=== PATIENT | female | born 1960 | race Caucasian/White ===

== ENCOUNTER 2018-10-18 02:09 | Emergency (ER) | payer BC ==
[~2018-10-18] VITALS: Ht 167.6 cm; Wt 99.8 kg
--- OUTSIDE RECORDS SUMMARY | 2018-10-18 02:12 | XMS REPORT | Clinical Summary ---
Author Author Matthew [facility] Organization [place] [employer] Address Unknown Phone Unavailable Care Team Providers Care Coconut Boiler Name Role Phone Jasiel Zamorano MD PCP Allergies Comments Active Allergy Reactions Severity Noted Date Leg swelling Amlodipine Swelling 07/08/2018 sob Nebivolol 10/17/2018 cough Lisinopril 10/17/2018 Leg cramps Triamterene-Hydrochloroth 10/17/2018 iazid Medications End Date Status Medication Sig Dispensed Refills Start Date 10/31/2018 Active fluticasone (FLONASE) 50 2 sprays (100 16 g 2 mcg/actuation nasal spray mcg total) by 8 Each Nare route daily. Active triamcinolone (KENALOG) Apply 30 g 1 0.5 % ointment topically 2 8 (two) times a day. Active hydrALAZINE (APRESOLINE) Take 1 tablet 270 tablet 1 50 MG tablet (50 mg total) 9 by mouth 3 (three) times a day. 10/17/2019 Active clonIDINE (CATAPRES-TTS) Place 1 patch 12 patch 1 0.2 mg/24 hr (0.2 mg 9 total) on the skin once a week. Active olmesartan (BENICAR) 40 TAKE 1 90 tablet 1 MG tablet TABLET(40 MG) 9 BY MOUTH DAILY 01/15/2019 Active ezetimibe (ZETIA) 10 mg Take 1 tablet 90 tablet 0 tablet (10 mg total) 9 by mouth daily for 90 days. 10/31/2017 Discontinued hydrALAZINE (APRESOLINE) TK 1 T PO BID 1 25 MG tablet 8 10/31/2017 Discontinued triamcinolone (KENALOG) Apply 0 0.5 % ointment topically 2 (two) times a day. 10/31/2017 Discontinued olmesartan (BENICAR) 40 Take 1 tablet 30 tablet 0 MG tablet (40 mg total) 8 by mouth daily for 30 days. 10/31/2017 Discontinued hydroCHLOROthiazide Take 1 tablet 30 tablet 0 (HYDRODIURIL) 25 MG (25 mg total) 8 tablet by mouth daily for 30 days. 02/06/2018 Discontinued hydroCHLOROthiazide Take 1 tablet 90 tablet 0 (HYDRODIURIL) 25 MG (25 mg total) 8 tablet by mouth daily for 30 days. 11/19/2017 Discontinued hydrALAZINE (APRESOLINE) TK 1 T PO BID 180 tablet 0 25 MG tablet 8 02/06/2018 Discontinued olmesartan (BENICAR) 40 Take 1 tablet 90 tablet 0 MG tablet (40 mg total) 8 by mouth daily for 30 days. 04/18/2018 Discontinued ergocalciferol (VITAMIN Take 1 12 capsule 0 D2) 50,000 unit capsule capsule 8 (50,000 Units total) by mouth once a week. 03/12/2018 Discontinued hydrALAZINE (APRESOLINE) TK 1 T PO TID 270 tablet 0 25 MG tablet 8 04/18/2018 Discontinued hydroCHLOROthiazide TAKE 1 90 tablet 0 (HYDRODIURIL) 25 MG TABLET(25 MG) 8 tablet BY MOUTH DAILY 04/18/2018 Discontinued olmesartan (BENICAR) 40 TAKE 1 90 tablet 0 MG tablet TABLET(40 MG) 8 BY MOUTH DAILY 04/18/2018 Discontinued hydrALAZINE (APRESOLINE) TAKE 1 TABLET 90 tablet 0 25 MG tablet BY MOUTH 9 THREE TIMES DAILY 05/09/2018 Discontinued olmesartan (BENICAR) 40 TAKE 1 90 tablet 1 MG tablet TABLET(40 MG) 9 BY MOUTH DAILY 06/05/2018 Discontinued hydroCHLOROthiazide TAKE 1 90 tablet 1 (HYDRODIURIL) 25 MG TABLET(25 MG) 9 tablet BY MOUTH DAILY 06/05/2018 Discontinued hydrALAZINE (APRESOLINE) TAKE 1 TABLET 90 tablet 1 25 MG tablet BY MOUTH 9 THREE TIMES DAILY 10/17/2018 Discontinued rosuvastatin (CRESTOR) 5 Take 1 tablet 90 tablet 1 MG tablet (5 mg total) 9 by mouth daily. 04/28/2018 Discontinued olmesartan-hydrochlorothi Take 1 tablet 90 tablet 1 azide (BENICAR HCT) 40-25 by mouth 9 mg per tablet daily for 90 days. 05/09/2018 Discontinued olmesartan-hydrochlorothi Take 1 tablet 90 tablet 1 azide (BENICAR HCT) 40-25 by mouth 9 mg per tablet daily for 90 days. 06/05/2018 Discontinued nebivolol (BYSTOLIC) 20 Take 1 tablet 90 tablet 0 mg tablet (20 mg total) 9 by mouth daily. 06/05/2018 Discontinued olmesartan (BENICAR) 40 0 MG tablet 9 08/30/2018 Discontinued olmesartan (BENICAR) 40 Take 1 tablet 90 tablet 0 MG tablet (40 mg total) 9 by mouth daily. 07/22/2018 Discontinued clonIDINE (CATAPRES-TTS) Place 1 patch 4 patch 0 0.2 mg/24 hr (0.2 mg 9 total) on the skin once a week. 10/17/2018 Discontinued triamterene-hydrochloroth Take 1 tablet 30 tablet 0 iazid (MAXZIDE-25MG) by mouth 9 37.5-25 mg per tablet daily. 08/30/2018 Discontinued hydrALAZINE (APRESOLINE) Take 1 tablet 90 tablet 0 25 MG tablet (25 mg total) 9 by mouth 3 (three) times a day. 10/17/2018 Discontinued clonIDINE (CATAPRES-TTS) Place 1 patch 12 patch 0 0.2 mg/24 hr (0.2 mg 9 total) on the skin once a week. 10/17/2018 Discontinued olmesartan (BENICAR) 40 TAKE 1 90 tablet 0 MG tablet TABLET(40 MG) 9 BY MOUTH DAILY 10/17/2018 Discontinued hydrALAZINE (APRESOLINE) TAKE 1 90 tablet 0 25 MG tablet TABLET(25 MG) 9 BY MOUTH THREE TIMES DAILY Active Problems Problem Noted Date Obesity (BMI 35.0-39.9 without comorbidity) 10/31/2017 Vitamin D deficiency 10/31/2017 Hyperlipidemia LDL goal <100 10/10/2017 Essential hypertension 10/10/2017 Leg cramp 10/10/2017 Cigarette nicotine dependence without complication 10/10/2017 Family history of colon cancer 10/10/2017 Glucose intolerance (impaired glucose tolerance) 10/10/2017 Encounters Care Team Description Date Type Specialty Jasiel Zamorano MD Essential hypertension (Primary Dx); Hyperlipidemia LDL goal <100; Glucose intolerance (impaired glucose tolerance); Obesity (BMI 35.0-39.9 without comorbidity) 10/17/2018 Office Visit Internal Medicine Jasiel Zamorano MD 10/13/2018 Refill Internal Medicine Jasiel Zamorano MD 08/30/2018 Refill Internal Medicine Marcie Schofield MA 07/22/2018 Refill Internal Medicine Jasiel Zamorano MD Essential hypertension (Primary Dx); Obesity (BMI 35.0-39.9 without comorbidity); Hyperlipidemia LDL goal <100; Cigarette nicotine dependence without complication; Glucose intolerance (impaired glucose tolerance) 07/08/2018 Office Visit Internal Medicine Jasiel Zamorano MD Essential hypertension (Primary Dx); Obesity (BMI 35.0-39.9 without comorbidity) 06/05/2018 Office Visit Internal Medicine Jasiel Zamorano MD Essential hypertension (Primary Dx); Leg cramp 05/09/2018 Office Visit Internal Medicine Mihaela Burton MA 04/28/2018 Orders Only Internal Medicine Mihaela Burton MA 04/23/2018 Orders Only Internal Medicine Jasiel Zamorano MD Essential hypertension (Primary Dx); Hyperlipidemia LDL goal <100; Glucose intolerance (impaired glucose tolerance); Obesity (BMI 35.0-39.9 without comorbidity); Cigarette nicotine dependence without complication; Vitamin D deficiency; Family history of colon cancer 04/18/2018 Office Visit Internal Jasiel Morin MD 04/14/2018 Refill Internal Medicine Jasiel Zamorano MD 03/12/2018 Refill Internal Medicine Jasiel Zamorano MD 02/06/2018 Refill Internal Medicine Mihaela Burton MA 11/19/2017 Orders Only Internal Medicine Jasiel Zamorano MD Essential hypertension (Primary Dx); Glucose intolerance (impaired glucose tolerance); Hyperlipidemia LDL goal <100; Vitamin D deficiency; Obesity (BMI 35.0-39.9 without comorbidity) 10/31/2017 Office Visit Internal Medicine after 10/17/2017 Family History Medical History Relation Name Comments Colon cancer Father Stroke Father Heart disease Mother Colon cancer Sister Thyroid disease Sister Thyroid disease Sister Thyroid disease Sister Relation Name Status Comments Father Mother Sister Alive Sister Alive Sister Alive Sister Alive Social History Date Tobacco Use Types Packs/Day Years Used Current Every Day Smoker Cigarettes 0.5 45 Smokeless Tobacco: Never Used Tobacco Cessation: Ready to Quit: Yes; Counseling Given: Yes Alcohol Use Drinks/Week oz/Week Comments Yes socially Sex Assigned at Date Recorded Not on file Industry Job Start Date Occupation Not on file Not on file Not on file Travel End Travel History Travel Start No recent travel history available. Last Filed Vital Signs Time Taken Vital Sign Reading 10/17/2018 11:54 AM CDT Blood Pressure 155/80 10/17/2018 11:54 AM CDT Pulse 73 10/17/2018 11:54 AM CDT Temperature 36.7 C (98.1 F) - Respiratory Rate - 10/17/2018 11:54 AM CDT Oxygen Saturation 98% - Inhaled Oxygen - Concentration 10/17/2018 11:54 AM CDT Weight 101 kg (222 lb) 10/17/2018 11:54 AM CDT Height 167.6 cm (5' 6") 10/17/2018 11:54 AM CDT Body Mass Index 35.83 Plan of Treatment Health Maintenance Due Date Last Done Comments BREAST CANCER SCREENING 10/24/2009 COLONOSCOPY SCREENING 10/24/2009 SHINGLES VACCINES (#1) 10/24/2009 INFLUENZA VACCINE 10/02/2018 02/13/2018 Procedures Comments Procedure Name Priority Date/Time Associated Diagnosis HEMOGLOBIN A1C Routine 07/07/2018 Glucose intolerance 9:28 AM CDT (impaired glucose tolerance) VITAMIN D 25 HYDROXY Routine 07/07/2018 Vitamin D deficiency LEVEL 9:28 AM CDT LIPID PANEL WITH REFLEX Routine 07/07/2018 Hyperlipidemia LDL goal TO DIRECT LDL 9:28 AM CDT <100 COMPREHENSIVE METABOLIC Routine 07/07/2018 Essential hypertension PANEL 9:28 AM CDT CBC WITH PLATELET AND Routine 07/07/2018 Essential hypertension DIFFERENTIAL 9:28 AM CDT MAGNESIUM LEVEL Routine 05/09/2018 Leg cramp 2:25 PM ROTARY PLANER SET UP OPERATOR LIPID PANEL WITH REFLEX Routine 04/17/2018 Hyperlipidemia LDL goal TO DIRECT LDL 9:09 AM ROTARY PLANER SET UP OPERATOR <100 BASIC METABOLIC PANEL Routine 04/17/2018 Essential hypertension 9:09 AM ROTARY PLANER SET UP OPERATOR after 10/17/2017 Results * LIPID PANEL WITH REFLEX TO DIRECT LDL (07/07/2018 9:28 AM CDT) Only the most recent of 2 results within the time period is included. [facility] Cholesterol, 155 <200 mg/dL [facility] [place] HDL cholesterol 40 (L) >50 mg/dL [facility] [place] Triglycerides 249 (H) <150 mg/dL [facility] [place] LDL cholesterol 82 mg/dL (calc) [facility] calculated Comment: DIAGNOSTICS Reference range: <100 [place] Desirable range <100 mg/dL for primary prevention; <70 mg/dL for patients with CHD or diabetic patients with > or=2 CHD risk factors. LDL-C is now calculated using the Pal-Jose calculation, which is a validated novel method providing better accuracy than the Friedewald equation in the estimation of LDL-C. Pal SS et al. SHANT. 2013;310(19): 1841-2805 (http://education.[employer].com/faq/QWX798) Cholesterol/HDL 3.9 <5.0 (calc) [facility] ratio [facility] [place] Non-HDL 115 <130 mg/dL (calc) [facility] cholesterol Comment: DIAGNOSTICS For patients with diabetes [place] plus 1 major ASCVD risk factor, treating to a non-HDL-C goal of <100 mg/dL (LDL-C of <70 mg/dL) is considered a therapeutic option. Specimen Narrative Performed At FASTING:YES [facility] FASTING: YES Resulting Agency Comment Performing Organization Information: Site ID: [id number] Name: [facility] Address: [address] [place] [address] Director: Blossom Manzanares Performing Organization Address City/State/Zipcode Phone Number BEN [facility] [address] [address] * Vitamin D 25 hydroxy level (07/07/2018 9:28 AM CDT) Pathologist [facility] Vitamin D, 47 30 - 100 ng/mL [facility] 25-hydroxy Comment: DIAGNOSTICS Vitamin D [place] Status 25-OH Vitamin D: Deficiency: <20 ng/mL Insufficiency: 20 - 29 ng/mL Optimal: > or=30 ng/mL For 25-OH Vitamin D testing on patients on D2-supplementation and patients for whom quantitation of D2 and D3 fractions is required, the QuestAssureD(TM) 25-OH VIT D, (D2,D3), LC/MS/MS is recommended: order code 30441 (patients >2yrs). For more information on this test, go to: http://education.[employer]/faq/GLS137 (This link is being provided for informational/educational purposes only.) Specimen Narrative Performed At FASTING:YES [facility] FASTING: YES Resulting Agency Comment Performing Organization Information: Site ID: [id number] Name: [facility] Address: [address] [place] [id number] Director: Blossom Manzanares Performing Organization Address City/State/Zipcode Phone Number [employer] [place] [phone] * CBC with platelet and differential (07/07/2018 9:28 AM CDT) [facility] WBC 7.1 3.8 - 10.8 [facility] [employer]ousand[employer]L [facility] RBC 4.80 3.80 - 5.10 [facility] Million/uL [facility] HGB 14.3 11.7 - 15.5 g/dL [facility] [place] HCT 43.9 35.0 - 45.0 % [facility] [place] MCV 91.5 80.0 - 100.0 fL [facility] [place] MCH 29.8 27.0 - 33.0 pg [facility] [place] MCHC 32.6 32.0 - 36.0 g/dL [facility] [place] RDW 13.8 11.0 - 15.0 % [facility] [place] Platelet count 231 140 - 400 [facility] Thousand/uL [employer] [place] MPV 10.3 7.5 - 12.5 fL [facility] [place] Neutrophils, 4,047 1,500 - 7,800 [facility] absolute cells/uL [facility] [place] Lymphocytes, 2,229 850 - 3,900 cells/uL [facility] [place] Monocytes, 447 200 - 950 cells/uL [facility] absolute [facility] [place] Eosinophils, 327 15 - 500 cells/uL [facility] absolute [facility] [place] Basophils, 50 0 - 200 cells/uL [facility] absolute [facility] [place] Neutrophils 57 % [facility] [place] Lymphocytes 31.4 % [facility] [place] Monocytes 6.3 % [facility] [place] Eosinophils 4.6 % [facility] [place] Basophils + RC 0.7 % [facility] [place] Specimen Narrative Performed At FASTING:YES [facility] FASTING: YES Resulting Agency Comment Performing Organization Information: Site ID: [id number] Name: [facility] Address: [address] [place] [id number] Director: Blossom Manzanares Performing Organization Address [facility] Phone Number [facility] [address] * Hemoglobin A1c (07/07/2018 9:28 AM CDT) Hemoglobin A1C 5.8 (H) <5.7 % of total Hgb [facility] Comment: DIAGNOSTICS For someone without known [place] diabetes, a hemoglobin A1c value between 5.7% and 6.4% is consistent with prediabetes and should be confirmed with a follow-up test. For someone with known diabetes, a value <7% indicates that their diabetes is well controlled. A1c targets should be individualized based on duration of diabetes, age, comorbid conditions, and other considerations. This assay result is consistent with an increased risk of diabetes. Currently, no consensus exists regarding use of hemoglobin A1c for diagnosis of diabetes for children. Specimen Narrative Performed At FASTING:YES [facility] FASTING: YES Resulting Agency Comment Performing Organization Information: Site ID: [id number] Name: [facility] Address: [address] [place] [phone] Director: Blossom Manzanares Performing Organization Address [facility] Phone Number [facility] [place] [address] [place] [phone] * Comprehensive metabolic panel (07/07/2018 9:28 AM CDT) Glucose 99 65 - 99 mg/dL [facility] Comment: DIAGNOSTICS Fasting [place] reference interval BUN, whole 12 7 - 25 mg/dL [facility] blood [facility] [place] Creatinine 0.82 0.50 - 1.05 mg/dL [facility] Comment: DIAGNOSTICS For patients >49 years of age, [place] the reference limit for Creatinine is approximately 13% higher for people identified as -Russian. EGFR Non-Afr. 79 > OR=60 [facility] Russian mL/min/1.73m2 [facility] [place] EGFR 91 > OR=60 [facility] Russian mL/min/1.73m2 [facility] [place] BUN/creatinine NOT APPLICABLE 6 - 22 (calc) [facility] [place] Sodium 142 135 - 146 mmol/L [facility] [place] Potassium 4.3 3.5 - 5.3 mmol/L [facility] [place] Chloride 106 98 - 110 mmol/L [facility] [place] CO2 30 20 - 32 mmol/L [facility] [place] Calcium 9.4 8.6 - 10.4 mg/dL [facility] [place] Protein 7.1 6.1 - 8.1 g/dL [facility] [place] Albumin, S 4.3 3.6 - 5.1 g/dL [facility] [place] Globulin, total 2.8 1.9 - 3.7 g/dL [facility] (calc) [facility] [place] Albumin/globuli 1.5 1.0 - 2.5 (calc) [facility] n ratio [facility] [place] Total bilirubin 0.5 0.2 - 1.2 mg/dL [facility] [place] Alkaline 53 33 - 130 U/L [facility] phosphatase [facility] [place] AST 12 10 - 35 U/L [facility] [place] ALT 11 6 - 29 U/L [facility] [place] Specimen Narrative Performed At FASTING:YES [facility] FASTING: YES Resulting Agency Comment Performing Organization Information: Site ID: [id number] Name: [facility] Address: [address] [place] [phone] Director: Blossom Manzanares Performing Organization Address [facility] Phone Number [employer] [address] [address] * Magnesium level (05/09/2018 2:25 PM ROTARY PLANER SET UP OPERATOR) Magnesium 2.1 1.5 - 2.5 mg/dL [facility] [place] Specimen Blood Narrative Performed At FASTING:NO [facility] FASTING: NO Resulting Agency Comment Performing Organization Information: Site ID: [id number] Name: [facility] Address: [address] [place] [phone] Director: Blossom Manzanares Performing Organization Address City/[facility]/Zipcode Phone Number [employer] [address] [address] * Basic metabolic panel (04/17/2018 9:09 AM ROTARY PLANER SET UP OPERATOR) Glucose 100 (H) 65 - 99 mg/dL [facility] Comment: DIAGNOSTICS Fasting [place] reference interval For someone without known diabetes, a glucose value between 100 and 125 mg/dL is consistent with prediabetes and should be confirmed with a follow-up test. BUN, whole 18 7 - 25 mg/dL [facility] blood [facility] [place] Creatinine 0.82 0.50 - 1.05 mg/dL [facility] Comment: DIAGNOSTICS For patients >49 years of age, [place] the reference limit for Creatinine is approximately 13% higher for people identified as -Russian. EGFR Non-Afr. 79 > OR=60 [facility] Russian mL/min/1.73m2 [facility] [place] EGFR 91 > OR=60 [facility] Russian mL/min/1.73m2 [facility] [place] BUN/creatinine NOT APPLICABLE 6 - 22 (calc) [facility] [place] Sodium 141 135 - 146 mmol/L [facility] [place] Potassium 4.1 3.5 - 5.3 mmol/L [facility] [place] Chloride 104 98 - 110 mmol/L [facility] [place] CO2 28 20 - 32 mmol/L [facility] [place] Calcium 9.3 8.6 - 10.4 mg/dL [facility] [place] Specimen Narrative Performed At FASTING:YES [facility] FASTING: YES Resulting Agency Comment Performing Organization Information: Site ID: [id number] Name: [facility] Address: [address] [place] [phone] Director: Blossom Manzanares Performing Organization Address City/State/Zipcode Phone Number [employer] [place] [address] [place] [address] after 10/17/2017 Insurance Type Payer Benefit Subscriber ID Effective Phone Address Plan / Dates Group PPO BCBS BCBS xxxxxxxxxxxx [id number] CHOICE resent PPO/ERNESTINA L EMPL PPO Advance Directives Patient has advance care planning documents on file. For more information, kailyn hardy contact: Matthew Marshall [address] [place] [address]
--- OUTSIDE RECORDS SUMMARY | 2018-10-18 02:12 | XMS REPORT | Continuity of Care Document ---
Author Author [employer] Organization [employer] Address Unknown Phone Unavailable Care Team Providers Care Catalyst Supervisor Name Role Phone [employer] Information Ivaldi Unavailable Unavailable Problems Problem Status Onset Date Classification Date Reported Comments Source M25.562 Active 09/06/2016 [facility] Knee pain (finding) Active Problem 02/04/2017 [facility] Eczema (disorder) Active Problem 02/04/2017 [facility] Hypertensive disorder, systemic arterial (disorder) Active Problem 02/04/2017 [facility] Low back pain (disorder) Active Problem 02/04/2017 [facility] Obesity (disorder) Active Problem 02/04/2017 [facility] Uterine leiomyoma (disorder) Active Problem 02/04/2017 [facility] Medications No Data Provided for This Section Allergies, Adverse Reactions, Alerts No Known Medication Allergies Immunizations No Data Provided for This Section Results No Data Provided for This Section Pathology Reports No Data Provided for This Section Diagnostic Reports Report Value Date Source Knee 3 views DX Patient Name: KATJA EVANS : 1960; Age: 55 years y/o Female MR: [id number] * LEFT KNEE, 3 views History: left knee pain Technique : Frontal, lateral and oblique radiographs of the left knee were obtained. FINDINGS: There is no evidence of a significant joint effusion. There is no evidence of fracture, dislocation, or acute change. There are no degenerative changes or other significant osseous abnormalities. IMPRESSION: 1. Negative left knee. SL: [id number] 09/06/2016 [facility] Consultation Notes No Data Provided for This Section Discharge Summaries No Data Provided for This Section History and Physicals No Data Provided for This Section Vital Signs No Data Provided for This Section Encounters Location Location Details Encounter Type Encounter Number Reason For Visit Attending Provider ADM Date DC Date Status Source Outpatient [id number] DEMI PATEL 01/06/2016 Active [facility] Outpatient [id number] DEON PRASAD 08/07/2016 Active [facility] Outpatient [id number] DEMI REYH 09/06/[address] [facility] Outpatient [id number] Demi Amanda 09/06/2016 09/07/2016 [facility] Outpatient [id number] DEMI REYH 01/01/2017 [facility] Phone Message [id number] 01/31/2017 02/02/2017 [facility] Procedures Procedure Code Date Perfomer Comments Source Cervical cytology screening<sup>1</sup> [id number] 03/20/2011 [facility] Tubal ligation [id number] [facility] Assessment and Plan No Data Provided for This Section Plan of Care No Data Provided for This Section Social History Social History Date Source Social History TypeResponse Substance Abuse Use: None. Exercise Exercise duration: 15. Exercise frequency: 1-2 times/week. Employment/School Status: Unemployed. Alcohol Never Smoking Status Current every day smoker; Type: Cigarettes; Tobacco use per day: 10; Ready to change: No; Concerns about tobacco use in household: No; Exposure to Tobacco Smoke self; Cigarette Smoking Last 365 Days Yes; Reg Smoking Cessation Counseling Yes 08/07/2016 [facility] Social History TypeResponse Substance Abuse Use: None. Exercise Exercise duration: 15. Exercise frequency: 1-2 times/week. Employment/School Status: Unemployed. Alcohol Never Smoking Status Current every day smoker; Type: Cigarettes; Ready to change: No; Concerns about tobacco use in household: No; Exposure to Tobacco Smoke self; Cigarette Smoking Last 365 Days Yes; Reg Smoking Cessation Counseling Yes; Tobacco use per day: 10; 08/07/2016 [facility] Family History No Data Provided for This Section Advance Directives No Data Provided for This Section Functional Status No Data Provided for This Section
--- OUTSIDE RECORDS SUMMARY | 2018-10-18 02:12 | XMS REPORT | Summary of Care ---
Author Author [facility] Organization [facility] Address Unknown Phone Unavailable Encounter HQ Elinor(GLENN) [id number] Date(s): 09/06/16 - 09/06/16 [facility] [address] [place] [address]- Discharge Disposition: Home or Self Care Attending Physician: Margaret Yeboah DO Vital Signs No data available for this section Problem List Condition Effective Dates Status Health Status Informant Left knee Active pain(Confirmed) Eczema(Confirmed) Active Hypertension(Confirm Active ed) Low back Active pain(Confirmed) Obesity(Confirmed) Active Uterine Active fibroid(Confirmed) Allergies, Adverse Reactions, Alerts Substance Reaction Severity Status NKDA Active Medications No data available for this section Results No data available for this section Immunizations No data available for this section Procedures Procedure Date Related Diagnosis Body Site Cervical cytology screening1 03/20/11 Tubal ligation 1ASCUS Social History Social History Type Response Substance Abuse Use: None. Exercise Exercise duration: 15. Exercise frequency: 1-2 times/week. Employment/School Status: Unemployed. Alcohol Never Smoking Status Current every day smoker; Type: Cigarettes; Tobacco use per day: 10; Ready to change: No; Concerns about tobacco use in household: No; Exposure to Tobacco Smoke self; Cigarette Smoking Last 365 Days Yes; Reg Smoking Cessation Counseling Yes Assessment and Plan No data available for this section
--- OUTSIDE RECORDS SUMMARY | 2018-10-18 02:12 | XMS REPORT | Summary of Care ---
Author Author [facility] Organization [facility] Address Unknown Phone Unavailable Encounter HQ Encntr_alias(FIN) [id number] Date(s): 01/31/17 - 02/01/17 [facility] [address], [address] [place] [address]- [phone] Vital Signs No data available for this [...] Counseling Yes; Tobacco use per day: 10; Assessment and Plan No data available for this section
[2018-10-18] MEDS ORDERED: CLONIDINE HCL 0.3 MG TAB PO ONE (02:45)
[2018-10-18 03:06] LABS: BASOPHILS # (AUTO) 0.1 (0.0-0.1); BASOPHILS % 0.5 % (0.0-1.0); EOSINOPHILS # (AUTO) 0.3 (0.0-0.4); EOSINOPHILS % 3.7 % (0.0-6.0); HEMOGLOBIN 14.6 g/dL (12.0-16.0); LYMPHOCYTES # (AUTO) 3.6 (1.0-3.2); LYMPHOCYTES % 38.9 % (18.0-39.1); MEAN CORPUSCULAR HEMOGLOBIN 29.8 pg (28-32); MEAN CORPUSCULAR HGB CONC 32.4 g/dL (31-35); MEAN CORPUSCULAR VOLUME 91.8 fL (81-99); MONOCYTES # (AUTO) 0.6 (0.2-0.8); MONOCYTES % 6.7 % (4.4-11.3); NEUTROPHILS # (AUTO) 4.6 (2.1-6.9); PLATELET COUNT 274 x10e3/uL (140-360); RED CELL DISTRIBUTION WIDTH 14.1 % (11.7-14.4)
--- NOTE | 2018-10-18 03:22 | Diagnostic Imaging Report ---
A single frontal view of the chest. HISTORY: Chest pain, blood pressure COMPARISON: None available. DISCUSSION: Portable technique, limits sensitivity of the exam. Overlying monitoring leads. Soft tissue attenuation partially limits sensitivity of the exam. Tubes/Lines: None Lungs and pleura: The lungs are well inflated. No evidence of a consolidative pneumonia or pulmonary alveolar edema. No definite pleural effusion or pneumothorax is identified. Heart and mediastinum: The cardiomediastinal silhouette appear(s) unremarkable. Bones and soft tissues: Appear unremarkable, given this limited exam. IMPRESSION: No acute radiographic abnormality. Signed by: Dr. Jag Leary D.O., M.M.M. on 10/18/2018 3:18 AM
[2018-10-18 03:23] LABS: ALANINE AMINOTRANSFERASE 21 IU/L (0-55); ALBUMIN 4.3 g/dL (3.5-5.0); ALBUMIN/GLOBULIN RATIO 1.2 (0.8-2.0); ALKALINE PHOSPHATASE 61 IU/L (40-150); ANION GAP 12.3 mmol/L (8-16); BLOOD UREA NITROGEN 14 mg/dL (7-26); BUN/CREATININE RATIO 15 (6-25); CALCIUM 9.7 mg/dL (8.4-10.2); CARBON DIOXIDE 28 mmol/L (22-29); CHLORIDE 105 mmol/L (98-107); CREATINE KINASE 158 IU/L (29-168); CREATININE, SERUM 0.91 mg/dL (0.57-1.11); EST GLOMERULAR FILTRATION RATE > 60 ML/MIN (60-); GLUCOSE 106 mg/dL (74-118); POTASSIUM 3.3 mmol/L (3.5-5.1); SODIUM 142 mmol/L (136-145)
[2018-10-18] MEDS ORDERED: SIMETHICONE 80 MG CHEW PO PRN (03:30)
[2018-10-18] MEDS ORDERED: SIMETHICONE 80 MG CHEW ONE (03:45)
[2018-10-18 05:58] VITALS: BP 135/69
== END 2018-10-18 06:02 | disposition home or self-care (01) ==
LOC: ER 02:09
DX: R07.89 Other chest pain (principal); R10.13 Epigastric pain; R42 Dizziness and giddiness; I10 Essential (primary) hypertension; E78.5 Hyperlipidemia, unspecified
CPT/HCPCS: 36415; 71045; 80053; 82550; 82553; 84484; 85025; 93005; 99284

== ENCOUNTER 2020-05-29 17:16 | Emergency (ER) | payer BC ==
[~2020-05-29] VITALS: Ht 167.6 cm; Wt 102.1 kg
[2020-05-29 17:48] LABS: BASOPHILS # (AUTO) 0.1 (0.0-0.1); BASOPHILS % 0.6 % (0.0-1.0); EOSINOPHILS # (AUTO) 0.3 (0.0-0.4); EOSINOPHILS % 2.2 % (0.0-6.0); HEMATOCRIT 42.2 % (34.2-44.1); HEMOGLOBIN 13.4 g/dL (12.0-16.0); LYMPHOCYTES # (AUTO) 2.9 (1.0-3.2); LYMPHOCYTES % 24.8 % (18.0-39.1); MEAN CORPUSCULAR HEMOGLOBIN 28.8 pg (28-32); MEAN CORPUSCULAR HGB CONC 31.8 g/dL (31-35); MEAN CORPUSCULAR VOLUME 90.6 fL (81-99); MONOCYTES # (AUTO) 0.7 (0.2-0.8); MONOCYTES % 5.7 % (4.4-11.3); NEUTROPHILS # (AUTO) 7.9 (2.1-6.9); NEUTROPHILS % 66.4 % (38.7-80.0); PLATELET COUNT 279 x10e3/uL (140-360); RED BLOOD COUNT 4.66 x10e6/uL (3.6-5.1); RED CELL DISTRIBUTION WIDTH 13.6 % (11.7-14.4)
[2020-05-29 18:12] LABS: ALANINE AMINOTRANSFERASE 23 IU/L (0-55); ALBUMIN/GLOBULIN RATIO 1.1 (0.8-2.0); ALKALINE PHOSPHATASE 52 IU/L (40-150); ANION GAP 12.6 mmol/L (8-16); BLOOD UREA NITROGEN 11 mg/dL (7-26); BUN/CREATININE RATIO 14 (6-25); CALCIUM 9.5 mg/dL (8.4-10.2); CARBON DIOXIDE 27 mmol/L (22-29); CHLORIDE 106 mmol/L (98-107); CREATINE KINASE 104 IU/L (29-168); CREATININE, SERUM 0.81 mg/dL (0.57-1.11); EST GLOMERULAR FILTRATION RATE > 60 ML/MIN (60-); GLUCOSE 105 mg/dL (74-118); POTASSIUM 3.6 mmol/L (3.5-5.1); SODIUM 142 mmol/L (136-145)
[2020-05-29 18:13] LABS: AMYLASE 62 U/L (25-125); LIPASE 22 U/L (8-78)
[2020-05-29 18:24] LABS: INR 0.89; PROTHROMBIN TIME 12.5 seconds (11.9-14.5)
[2020-05-29 18:36] LABS: CLARITY,URINE CLEAR (CLEAR); COLOR,URINE YELLOW (YELLOW)
[2020-05-29 18:37] LABS: KETONES,URINE NEGATIVE (NEGATIVE); LEUKOCYTE ESTERASE ,URINE NEGATIVE (NEGATIVE); NITRITE,URINE NEGATIVE (NEGATIVE); PROTEIN,URINE DIPSTICK NEGATIVE (NEGATIVE); URINE UROBILINOGEN 0.2 mg/dL (0.2 - 1)
[2020-05-29 18:48] LABS: EPITHELIAL CELLS,URINE FEW /LPF; WBC,URINE (MAN) 0-5 /HPF (0-5)
[2020-05-29 19:09] VITALS: BP 135/68
== END 2020-05-29 19:09 | disposition home or self-care (01) ==
LOC: ER 17:30
DX: R07.89 Other chest pain (principal); R06.00 Dyspnea, unspecified; R53.81 Other malaise; I10 Essential (primary) hypertension; E78.5 Hyperlipidemia, unspecified; R94.31 Abnormal electrocardiogram [ECG] [EKG]; Z20.822 Contact with and (suspected) exposure to COVID-19; F17.210 Nicotine dependence, cigarettes, uncomplicated
CPT/HCPCS: 36415; 71045; 80053; 81001; 82150; 82550; 82553; 83690; 83880; 84484; 85025; 85379; 85610; 85730; 93005; 99284; U0002

== ENCOUNTER 2020-09-20 04:51 | Emergency (ER) | payer BC ==
[~2020-09-20] VITALS: Ht 167.6 cm; Wt 102.1 kg
[2020-09-20] MEDS ORDERED: OLMESARTAN 20 MG TAB PO ONE (05:00)
[2020-09-20 05:11] LABS: BASOPHILS # (AUTO) 0.1 (0.0-0.1); BASOPHILS % 0.7 % (0.0-1.0); EOSINOPHILS # (AUTO) 0.3 (0.0-0.4); EOSINOPHILS % 2.5 % (0.0-6.0); HEMATOCRIT 40.5 % (34.2-44.1); LYMPHOCYTES # (AUTO) 2.8 (1.0-3.2); MEAN CORPUSCULAR HEMOGLOBIN 29.3 pg (28-32); MEAN CORPUSCULAR HGB CONC 32.1 g/dL (31-35); MEAN CORPUSCULAR VOLUME 91.2 fL (81-99); MONOCYTES # (AUTO) 0.6 (0.2-0.8); NEUTROPHILS # (AUTO) 6.5 (2.1-6.9); NEUTROPHILS % 63.5 % (38.7-80.0); PLATELET COUNT 243 x10e3/uL (140-360); RED BLOOD COUNT 4.44 x10e6/uL (3.6-5.1); RED CELL DISTRIBUTION WIDTH 13.8 % (11.7-14.4)
[2020-09-20 05:17] LABS: CLARITY,URINE CLEAR (CLEAR); COLOR,URINE YELLOW (YELLOW); LEUKOCYTE ESTERASE ,URINE TRACE (NEGATIVE)
[2020-09-20 05:18] LABS: KETONES,URINE NEGATIVE (NEGATIVE); NITRITE,URINE NEGATIVE (NEGATIVE); PROTEIN,URINE DIPSTICK NEGATIVE (NEGATIVE); URINE UROBILINOGEN 0.2 mg/dL (0.2 - 1)
[2020-09-20 05:20] LABS: BACTERIA,URINE FEW /HPF; EPITHELIAL CELLS,URINE MODERATE /LPF; RBC,URINE 0-5 /HPF (0-5)
[2020-09-20 05:29] LABS: ALANINE AMINOTRANSFERASE 22 IU/L (0-55); ALBUMIN 3.7 g/dL (3.5-5.0); ALBUMIN/GLOBULIN RATIO 1.1 (0.8-2.0); ALKALINE PHOSPHATASE 48 IU/L (40-150); ANION GAP 10.9 mmol/L (8-16); BLOOD UREA NITROGEN 18 mg/dL (7-26); BUN/CREATININE RATIO 20 (6-25); CALCIUM 9.4 mg/dL (8.4-10.2); CARBON DIOXIDE 28 mmol/L (22-29); CHLORIDE 105 mmol/L (98-107); CREATINE KINASE 82 IU/L (29-168); EST GLOMERULAR FILTRATION RATE 64 ML/MIN (60-); GLUCOSE 118 mg/dL (74-118); POTASSIUM 3.9 mmol/L (3.5-5.1); SODIUM 140 mmol/L (136-145)
[2020-09-20 06:36] VITALS: BP 182/87
== END 2020-09-20 06:30 | disposition home or self-care (01) ==
LOC: ER 05:03
DX: R07.89 Other chest pain (principal); I10 Essential (primary) hypertension; Z87.440 Personal history of urinary (tract) infections; E78.5 Hyperlipidemia, unspecified
CPT/HCPCS: 36415; 71045; 80053; 81001; 82550; 82553; 83880; 84484; 85025; 93005; 99284